=== PATIENT | male | born 1995 | race Caucasian/White ===

== ENCOUNTER 2021-08-30 17:44 | Emergency (ER) | payer BC ==
[~2021-08-30] VITALS: Ht 170.2 cm; Wt 95.5 kg
[2021-08-30 17:50] VITALS: TEMP 101.8
[2021-08-30] MEDS ORDERED: CEPHALEXIN500 M1 PO ×2 (18:32→18:54)
[2021-08-30] MEDS ORDERED: PERCOCET 325 MG1 TA2 PO ×2 (18:32→18:54)
[2021-08-30 19:00] VITALS: BP 132/61; PULSE 105
== END 2021-08-30 19:00 | disposition home or self-care (01) ==
LOC: COL.ER 17:44
DX: L02.31 Cutaneous abscess of buttock (principal)
CPT/HCPCS: J0696